=== PATIENT | male | born 1995 | race Caucasian/White ===

== ENCOUNTER 2018-02-13 00:31 | Inpatient (IN) ==
--- NOTE | 2018-02-13 01:09 | ED ---
HPI General Chief Complaint: Psychiatric Symptoms Stated Complaint: psych eval Time Seen by Provider: 02/13/18 00:32 Source: patient Mode of arrival: ambulatory Limitations: no limitations History of Present Illness HPI Narrative: 22-year-old white male presents emergency department under Robison act by . His roommates at school called police and advised them that the patient was feeling depressed and having suicidal thoughts. He had performed suicide gesture cutting with a X-Acto knife to his left wrist. Patient contemplated in the past killing himself with a firearm. The patient had given his firearm to his roommate who then in turn gave a to police this evening. Patient admits to drinking alcohol this evening. He states that he has been suffering from depression for quite some time. Patient is a student at [employer]. He is a geology major. States he has been doing well in school. He denies any toxic ingestions. He denies any homicidal ideation. He denies any medical complaints. Related Data Home Medications Medication Instructions Recorded Confirmed No Known Home Medications 02/13/18 02/13/18 Allergies Allergy/AdvReac Type Severity Reaction Status Date / Time No Allergy Information Allergy Unverified 02/13/18 00:33 Available Review of Systems ROS: all other systems reviewed are negative [facility] Medical History Medical History Patient denies medical problems (Acute) Surgical History Surgical History No history of previous surgery (Acute) Social History Social History Substance History: No History of Abuse Second Hand Smoke Exposure: No Smoking Status: Current some day smoker Tobacco Type: Cigars How Often Do You Have a Drink Containing Alcohol: Never Recent Travel in [place] within the Last 8 Weeks: No Recent Out of Country Travel within the Last 8 Weeks: No Immunization History Tetanus Immunization: <5 Years Exam Narrative Exam Narrative: GENERAL: Well-nourished, well-developed patient. Patient appears under the influence of alcohol. SKIN: Warm and dry. HEAD: Normocephalic and atraumatic. EYES: No scleral icterus. No injection or drainage. ENT: No nasal drainage noted. Mucous membranes pink. Airway patent. NECK: Supple, trachea midline. Moves head freely without obvious discomfort. CARDIOVASCULAR: Regular rate and rhythm without murmurs, gallops, or rubs. RESPIRATORY: Breath sounds equal bilaterally. No accessory muscle use. GASTROINTESTINAL: Abdomen soft, non-tender, nondistended. EXTREMITIES: No cyanosis or edema. Patient has suicide gesture cutting to the left wrist. This is very superficial and does not enter the dermis. BACK: Nontender without obvious deformity. No CVA tenderness. NEURO: Patient is alert and oriented. no sensorimotor deficits. Nonfocal. Normal speech. PSYCH: No delusions. No auditory or visual hallucinations. Course Initial Documented Vital Signs Temperature 98.5 F 02/13/18 00:43 Pulse Rate 99 H 02/13/18 00:43 Respiratory Rate 18 02/13/18 00:43 Blood Pressure 152/101 H 02/13/18 00:43 Pulse Oximetry 98 02/13/18 00:43 Last Documented Vital Signs Temperature 98.5 F 02/13/18 00:43 Pulse Rate 99 H 02/13/18 00:43 Respiratory Rate 18 02/13/18 00:43 Blood Pressure 152/101 H 02/13/18 00:43 Pulse Oximetry 98 02/13/18 00:43 Medical Decision Making MDM Narrative Medical decision making narrative: We will perform routine laboratory testing for medical clearance. Patient is up-to-date with immunizations. Medical Screen Exam Complete: Yes Emergency Medical Condition: Yes Differential Diagnosis Differential Diagnosis: MDM: High Differential diagnoses: Schizophrenia, schizoaffective disorder, bipolar, anxiety, depression, adjustment reaction, mood disorder NOS, ODD, depressive disorder NOS, substance induced mood disorder, infection,electrolyte abnormality , malingering. Mental health screening discussed with the patient. Psychiatric screen ordered. Lab Data Result diagrams: 02/13/18 00:55 02/13/18 00:55 Lab Results 02/13/18 02/13/18 Range/Units 00:55 00:55 WBC 5.7 (4.0-11.0) th/mm3 RBC 5.70 (4.50-5.90) mil/mm3 Hgb 16.7 (13.0-17.0) gm/dL Hct 49.4 (39.0-51.0) % MCV 86.8 (80.0-100.0) fL MCH 29.3 (27.0-34.0) pg MCHC 33.7 (32.0-36.0) % RDW 13.4 (11.6-17.2) % Plt Count 187 (150-450) th/mm3 MPV 8.4 (7.0-11.0) fL Neut % (Auto) 49.3 (16.0-70.0) % Lymph % (Auto) 31.9 (9.0-44.0) % Nicholas % (Auto) 8.2 H (0.0-8.0) % Eos % (Auto) 6.8 H (0.0-4.0) % Baso % (Auto) 3.8 H (0.0-2.0) % Neut # (Auto) 2.8 (1.8-7.7) th/mm3 Lymph # (Auto) 1.8 (1.0-4.8) th/mm3 Nicholas # (Auto) 0.5 (0.0-0.9) th/mm3 Eos # (Auto) 0.4 (0.0-0.4) th/mm3 Baso # (Auto) 0.2 (0.0-0.2) th/mm3 WBC Differential . Differential Comment Auto diff final Sodium 146 H (136-145) meq/L Potassium 3.7 (3.5-5.1) meq/L Chloride 108 H (98-107) meq/L Carbon Dioxide 30.8 (21.0-32.0) meq/L Anion Gap 7 (5-15) meq/L BUN 8 (7-18) mg/dL Creatinine 1.12 (0.60-1.30) mg/dL Estimated GFR 83 L (>89) mL/min Random Glucose 87 (74-106) mg/dL Calcium 8.5 (8.5-10.1) mg/dL Magnesium 2.1 (1.5-2.5) mg/dL Total Bilirubin 0.5 (0.2-1.0) mg/dL AST 18 (15-37) U/L ALT 22 (12-78) U/L Alkaline Phosphatase 64 (45-117) U/L Total Protein 8.3 H (6.4-8.2) g/dL Albumin 4.4 (3.4-5.0) g/dL TSH 2.450 (0.358-3.740) uIU/mL Serum Alcohol 117 H (0-5) mg/dL Discharge Plan Discharge Disposition Patient Disposition: 30 Still Patient Discharge Condition Condition: Stable Physicians Team ED Provider: Vanessa Mcclain ED Midlevel Provider: Jm Cleary Primary Care Provider: UNKNOWN, Rxs /Orders / Referrals /Forms Prescriptions: No Action No Known Home Medications RF: 0 Status ED Status: Medically Cleared
[2018-02-13 01:27] LABS: Baso # (Auto) 0.2 th/mm3 (0.0-0.2); Baso % (Auto) 3.8 % (0.0-2.0); Eos # (Auto) 0.4 th/mm3 (0.0-0.4); Eos % (Auto) 6.8 % (0.0-4.0); Hematocrit 49.4 % (39.0-51.0); Hemoglobin 16.7 gm/dL (13.0-17.0); Lymph # (Auto) 1.8 th/mm3 (1.0-4.8); Lymph % (Auto) 31.9 % (9.0-44.0); Mean Corpuscular HGB Conc 33.7 % (32.0-36.0); Mean Corpuscular Hemoglobin 29.3 pg (27.0-34.0); Mean Corpuscular Volume 86.8 fL (80.0-100.0); Mean Platelet Volume 8.4 fL (7.0-11.0); Mono # (Auto) 0.5 th/mm3 (0.0-0.9); Mono % (Auto) 8.2 % (0.0-8.0); Neut # (Auto) 2.8 th/mm3 (1.8-7.7); Neut % (Auto) 49.3 % (16.0-70.0); Platelet Count 187 th/mm3 (150-450); Red Cell Distribution Width 13.4 % (11.6-17.2); White Blood Count 5.7 th/mm3 (4.0-11.0)
[2018-02-13 01:45] LABS: Albumin 4.4 g/dL (3.4-5.0); Anion Gap 7 meq/L (5-15); Aspartate Aminotransferase 18 U/L (15-37); Calcium 8.5 mg/dL (8.5-10.1); Carbon Dioxide 30.8 meq/L (21.0-32.0); Chloride 108 meq/L (98-107); Glomerular Filtration Rate 83 mL/min (>89); Glucose,Random 87 mg/dL (74-106); Magnesium 2.1 mg/dL (1.5-2.5); Potassium 3.7 meq/L (3.5-5.1); Sodium 146 meq/L (136-145)
[2018-02-13 01:57] LABS: Alanine Aminotransferase 22 U/L (12-78); Alkaline Phosphatase 64 U/L (45-117); Blood Urea Nitrogen 8 mg/dL (7-18); Total Protein 8.3 g/dL (6.4-8.2)
[2018-02-13 02:00] LABS: Alcohol 117 mg/dL (0-5)
[2018-02-13 07:58] LABS: Amphetamine Screen,Urine Neg (Neg); Barbiturate Screen,Urine Neg (Neg); Cannabinoid Screen,Urine Neg (Neg); Cocaine Screen,Urine Neg (Neg)
[2018-02-13 08:07] LABS: Opiate Screen,Urine Neg (Neg)
[2018-02-13] MEDS ORDERED: LORazepam 1 MG Tablet PO PRN (11:29)
[2018-02-13] MEDS ORDERED: Aluminum/Magnesium/Simethacone Susp 30 ML UDC PO PRN (11:29)
[2018-02-13] MEDS ORDERED: Bisacodyl 10 MG Supp RECTAL PRN (11:29)
[2018-02-13] MEDS ORDERED: Haloperidol Inj 5 MG/ML Ampul IV.PUSH PRN (11:29)
[2018-02-13] MEDS: Senna/Docusate Sodium 8.6/50 MG Tablet PO SCH (20:09)
[2018-02-14] MEDS: Senna/Docusate Sodium 8.6/50 MG Tablet PO SCH ×2 (08:34→22:45)
--- NOTE | 2018-02-14 10:22 | P.HPPSY ---
Provisional Diagnosis Admission Date: February 13, 2018 12:15 Competence Certification of Person's Competence To Provide Express and Informed Consent I have personally examined Saurav Sims, a person being served at [facility] on, February 14, 2018 1017. Express and informed consent means consent voluntarily given in writing, by a competent person, after sufficient explanation and disclosure of the subject matter involved to enable the person to make a knowing and willful decision without any element of force, fraud, deceit, duress, or other form of constraint or coercion. This person is 18 years of age or older, is not now known to be incompetent to consent to treatment with a guardian advocate, and does not have a health care surrogate or proxy currently making medical treatment decisions. I have found this person to be one of the following: [X] Competent to provide express and informed consent, as defined above, for voluntary admission to this facility and is competent to provide express and informed consent for treatment. He/she has the consistent capacity to make well reasoned, willful, and knowing decisions concerning his or her medical or mental health treatment. The person fully and consistently understands the purpose of the admission for examination/placement and is fully capable of personally exercising all rights assured under [place] [] Incompetent to provide express and informed consent to voluntary admission, and this is incompetent to provide express and informed consent to treatment. The person must be transferred to involuntary status and a petition for a guardian advocate filed with the Circuit Court. [] Refusing to provide express and informed consent to voluntary admission but is competent to provide express and informed consent for treatment. The person must be discharged or transferred to involuntary status. Form shall be completed within 24 hours of a person's arrival at the receiving facility and filed in the clinical record of each person: 1. Admitted on a voluntary basis 2. Permitted to provide express and informed consent to his/her own treatment 3. Allowed to transfer from involuntary to voluntary status 4. Prior to permitting a person to consent to his or her own treatment after having been previously found incompetent to consent to treatment. 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 Patient is admitted Via Robison act secondary to suicidal gestures while under the influence of alcohol. Patient has 5 or 6 superficial horizontal cuts on his left arm. He also tied a belt around his neck a couple times. Patient says that he was drinking after receiving of the bad news that a female friend declined to spend time with him that evening. Patient says that he started asking himself if he is where the of hers or anybody's attention and began with the thoughts that he would be better not to be alive. Patient says she has been depressed for the past couple of weeks. He has had some difficulty with concentration in school. He is very "hard on myself." Today, he denies suicidal or homicidal ideation intent or plan. He is very motivated to continue his education and join the [employer]. Past psych: Denies inpatient/outpatient treatment with a psychiatrist. Has seen a counselor for depression. Has never been on psychotropic medications before. Denies any history of cutting or suicidal gestures in the past Past medical: Denies Past Famhx: Mother was on antidepressants Past Social: Patient is a 31-year-old [employer] studying [employer] and [employer]. He spent 6 months in the [employer] in the summer and did well in that collegial environment. Is originally from [place]. Patient does not use marijuana or any other substances. Takes alcohol once a week with his friends - Inpatient Certification I certify that the inpatient services were ordered in accordance with Medicare regulations governing the order. This includes certification that hospital inpatient services are reasonable and necessary and in the case of services not specified as inpatient-only under 42 CFR 419.22(n), that they are appropriately provided as inpatient services in accordance to with the 2-midnight benchmark under 43 CFR 412.3(e) I certify that inpatient psychiatric hospital services are medically necessary. Evaluation and treatment and/or diagnostic testing are expected to improve the patient's condition. The patient needs on a daily basis, active treatment furnished directly by or requiring the supervision of inpatient psychiatric facility personnel. Estimated Total Length of Stay (Days): 7 Plans for Post Hospital Care: Home [facility] - History History Provided By: Patient - Medical History Medical History: Medical History (Last Reviewed 02/14/18 @ 10:21 by Jeffrey Castillo DO) Patient denies medical problems - Surgical History Surgical History: Surgical History (Last Reviewed 02/14/18 @ 10:21 by Jeffrey Castillo DO) No history of previous surgery - Tobacco History Second Hand Smoke Exposure: No Tobacco Use In Past 30 Days: No Smoking Status: Never smoker Tobacco Type: Cigars - Alcohol History How Often Do You Have a Drink Containing Alcohol: 2 to 4 times a month - Substance Use History Substance History: No History of Abuse - Travel History Recent Travel in the [facility] Within the Last 8 Weeks: No Recent Travel Out of the Country Within the Last 8 Weeks: No - Immunization History Tetanus Immunization: <5 Years Medications and Allergies Active Medications: Active Medications Al Hydrox/Mg Hydrox/Simethicone (Mag-Al Plus Susp Liq) 30 ml PO Q6H PRN PRN Reason: DYSPEPSIA Al Hydroxide/Mg Hydroxide (Milk Of Magnesia Liq) 30 ml PO Q12H PRN PRN Reason: Mild Constipation Bisacodyl (Dulcolax Supp) 10 mg RECTAL DAILY PRN PRN Reason: SEVERE CONSITIPATION Flumazenil (Romazecon Inj) 0.2 mg IV.PUSH Q1M PRN PRN Reason: OVERSEDATION Haloperidol Lactate (Haldol Inj) 1 mg IV.PUSH Q15M PRN PRN Reason: for severe agitation Lactulose (Lactulose Liq) 30 ml PO DAILY PRN PRN Reason: SEVERE CONSITIPATION Lorazepam (Ativan) 1 mg PO Q4H PRN PRN Reason: for CIWA 8-10 Lorazepam (Ativan) 2 mg PO Q2H PRN PRN Reason: for CIWA 11-14 Lorazepam (Ativan Inj) 2 mg IV.PUSH Q2H PRN PRN Reason: for CIWA 11-14 Lorazepam (Ativan Inj) 2 mg IV.PUSH Q1H PRN PRN Reason: for CIWA 15-20 Lorazepam (Ativan Inj) 2 mg IV.PUSH Q15M PRN PRN Reason: for CIWA > 20 Lorazepam (Ativan Inj) 1 mg IV.PUSH Q4H PRN PRN Reason: for CIWA 8-10 Senna/Docusate Sodium (Janet-Colace) 1 tab PO BID JORGE Last Admin: 02/14/18 08:34 Dose: 1 tab Sennosides (Senokot) 17.2 mg PO Q12H PRN PRN Reason: Moderate Constipation Allergies Allergy/AdvReac Type Severity Reaction Status Date / Time No Allergy Information Allergy Unverified 02/13/18 00:33 Available Home Medications Medication Instructions Recorded Confirmed Type No Known Home Medications 02/13/18 02/13/18 History Results - Labs CBC & Chem 7: 02/13/18 00:55 02/13/18 00:55 Exam Vital signs: Vital Signs 02/13/18 14:47 02/14/18 06:00 Temperature 98.6 F 98.1 F Pulse Rate 92 H 98 H Respiratory Rate 18 16 Blood Pressure 145/90 H 132/77 Pulse Oximetry 99 98 Intake & Output 02/13/18 02/14/18 02/14/18 19:59 06:59 18:59 Weight Other: Weight On Admission Mental Status Examination Appearance: Appropriate Consciousness: Alert Orientation: x4 Motor Activity: Normal gait Speech: Unremarkable Language: Adequate Fund of Knowledge: Adequate Attention and Concentration: Adequate Memory: Unremarkable Mood: Sad Affect: Blunt Thought Process & Associations: Intact Thought Content: Appropriate Hallucination Type: None Delusion Type: None Suicidal Ideation: No Suicidal Plan: No Suicidal Intention: No Homicidal Ideation: No Homicidal Plan: No Homicidal Intention: No Insight: Poor Judgment: Poor Assessment and Plan - Assessment (1) Adjustment disorder Code(s): F43.20 - Adjustment disorder, unspecified Status: Acute - Plan Plan: Estimated LOS: [] days Patient may sign voluntary. He gives consent for Lexapro 10 mg p.o. daily. And as needed trazodone for sleep Justification for Continued Inpatient Stay: Patient would decompensate in a less restrictive setting
[2018-02-14] MEDS ORDERED: traZODone 50 MG Tablet PO PRN (10:23)
[2018-02-14] MEDS: Escitalopram 10 MG Tablet PO SCH (10:35)
[2018-02-15 07:17] LABS: Calcium 8.7 mg/dL (8.5-10.1); Carbon Dioxide 29.7 meq/L (21.0-32.0); Potassium 4.1 meq/L (3.5-5.1)
[2018-02-15 07:22] LABS: Chol/HDL Ratio 2.52 Ratio; HDL Cholesterol 51.5 mg/dL (40.0-60.0)
[2018-02-15] MEDS: Escitalopram 10 MG Tablet PO SCH (08:18)
[2018-02-15] MEDS: Senna/Docusate Sodium 8.6/50 MG Tablet PO SCH (08:18)
--- NOTE | 2018-02-15 12:28 | P.DSPSY ---
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 Patient is admitted Via Robison act secondary to suicidal gestures while under the influence of alcohol. Patient has 5 or 6 superficial horizontal cuts on his left arm. He also tied a belt around his neck a couple times. Patient says that he was drinking after receiving of the bad news that a female friend declined to spend time with him that evening. Patient says that he started asking himself if he is where the of hers or anybody's attention and began with the thoughts that he would be better not to be alive. Patient says she has been depressed for the past couple of weeks. He has had some difficulty with concentration in school. He is very "hard on myself." Today, he denies suicidal or homicidal ideation intent or plan. He is very motivated to continue his education and join the [employer]. Past psych: Denies inpatient/outpatient treatment with a psychiatrist. Has seen a counselor for depression. Has never been on psychotropic medications before. Denies any history of cutting or suicidal gestures in the past Past medical: Denies Past Famhx: Mother was on antidepressants Past Social: Patient is a 31-year-old [employer] studying [employer] and [employer]. He spent 6 months in the [employer] in the summer and did well in that collegial environment. Is originally from [place]. Patient does not use marijuana or any other substances. Takes alcohol once a week with his friends Tobacco Use In Past 30 Days: No How Often Do You Have a Drink Containing Alcohol: 2 to 4 times a month Hospital Course: Patient's hospital course was uneventful, patient initially admitted by Dr. Castillo. Patient seen by me today. It appears patient was stood up by his girlfriend this past weekend did have alcohol in his apartment he started drinking then made inappropriate statements while intoxicated. His blood alcohol level was 117. Patient is seen today he is alert oriented calm cooperative white male in no acute distress he denies any suicidality homicidality voices or visions. He denies any prior psychiatric contact hospitalization psychotropic medication. He denies any family history of alcohol use mental health issues. At this time patient does not meet Robison act criteria. He is able contract to do no harm. He is showing some insight into his need for minimal alcohol use if any. Lives at this time he no longer meets Robison criteria will lift Robison act allow patient to be discharged. He may continue to the [facility] so by Dr. Dumont. He does have counseling appointment set up through [facility]. We will refer him through the psychiatric services of the community - Discharge Discharge Date: 02/15/18 - Discharge Diagnosis (1) Adjustment disorder with mixed disturbance of emotions and conduct Code(s): F43.25 - Adjustment disorder with mixed disturbance of emotions and conduct Status: Acute Discharge Disposition: Home - Discharge Instructions Discharge Diet: Regular Diet - Discharge Time > 30 minutes Mental Status Examination Appearance: Appropriate Consciousness: Alert Orientation: x4 Motor Activity: Normal gait Speech: Unremarkable Language: Adequate Fund of Knowledge: Adequate Attention and Concentration: Adequate Memory: Unremarkable Mood: Sad Affect: Blunt Thought Process & Associations: Intact Thought Content: Appropriate Hallucination Type: None Delusion Type: None Suicidal Ideation: No Suicidal Plan: No Suicidal Intention: No Homicidal Ideation: No Homicidal Plan: No Homicidal Intention: No Insight: Poor Judgment: Poor Discharge/Advance Care Plan - Results Vital Signs: Last Vital Signs Temp 98 F 02/15/18 06:14 Pulse 85 02/15/18 06:14 Resp 17 02/15/18 06:14 BP 137/95 H 02/15/18 06:14 Pulse Ox 100 02/15/18 06:14 Lab Results: Abnormal Lab Results 02/15/18 06:07 Sodium 139 Potassium 4.1 Chloride 104 Carbon Dioxide 29.7 Anion Gap 5 BUN 14 Creatinine 1.11 Estimated GFR 84 L Random Glucose 91 Calcium 8.7 Triglycerides 104 Cholesterol 130 LDL Cholesterol, Calc 58 HDL Cholesterol 51.5 Cholesterol/HDL Ratio 2.52 Laboratory Results Triglycerides 104 mg/dL (42-150) 02/15/18 06:07 Cholesterol 130 mg/dL (120-200) 02/15/18 06:07 LDL Cholesterol, Calc 58 mg/dL (0-99) 02/15/18 06:07 HDL Cholesterol 51.5 mg/dL (40.0-60.0) 02/15/18 06:07 TSH 2.450 uIU/mL (0.358-3.740) 02/13/18 00:55 Summary of Procedures: None done Pending Results: None - Medications Number of antipsychotic medications at discharge: 0 - Discharge Care Plan Goals to Promote Your Health: * To prevent worsening of your condition and complications * To maintain your health at the optimal level Directions to Meet Your Goals: Take your medications as prescribed Follow your dietary instruction Follow activity as directed Keep your appointments as scheduled Take your immunizations and boosters as scheduled If your symptoms worsen call your PCP, if no PCP go to Urgent Care Center or Emergency Room For 03/11 questions related to your inpatient stay or results of tests pending at discharge, please contact Dr. Duke Cervantes MD at Smoking is Dangerous to Your Health. Avoid second hand smoking
[2018-02-15 17:28] LABS: Hemoglobin A1c 4.7 % (4.3-6.0)
== END 2018-02-15 13:05 | disposition home or self-care (01) ==
LOC: NEPD 00:31 → NEDA 12:15 → H270 14:00
PROVIDERS: ADMIT Psychiatry & Neurology Psychiatry; ATTEND Psychiatry & Neurology Psychiatry